=== PATIENT | female | born 1980 | race Caucasian/White ===

== ENCOUNTER 2020-05-10 14:54 | Outpatient (CLI) | payer OTHER, SELFPAY ==
[2020-05-10 15:52] LABS: Basophils Absolute Auto 0.1 K/mm3 (0.0-0.1); Basophils Percent Auto 0.9 % (0.2-1.2); Eosinophils Absolute Auto 0.6 K/mm3 (0-0.3); Hematocrit 40.2 % (37.0-47.0); Hemoglobin 13.1 g/dL (12.0-15.0); Immature Granulocyte Absolute 0.02 K/mm3 (0.00-0.031); Immature Granulocyte Percent A 0.2 % (0-0.5); Lymphocytes Absolute Auto 2.13 K/mm3 (0.9-3.2); Lymphocytes Percent Auto 21.3 % (18.3-44.2); Mean Corpuscular HGB Conc 32.6 g/dl (32-36); Mean Corpuscular Hemoglobin 30.6 pg (26-34); Mean Corpuscular Volume 93.9 fl (80-100); Mean Platelet Volume 11.1 fl (7.4-10.4); Monocytes Absolute Auto 0.4 K/mm3 (0.1-0.6); Neutrophils Absolute Auto 6.8 K/mm3 (1.3-6.7); Neutrophils Percent Auto 67.6 % (45.5-73.1); Platelet Count Result 330 k/mm3 (150-375); Red Blood Count 4.28 M/mm3 (4.2-5.4); Red Cell Distribution Width 11.9 % (11.5-14.5)
[2020-05-10 15:53] LABS: Add Urine Microscopic? NO; Appearance Urine Clear (Clear); Bilirubin Urine Negative (Negative); Blood Urine Negative (Negative); Color Urine Yellow (Yellow); Glucose Urine UA Negative (Negative); Ketones Urine Negative (Negative); Leukocyte Esterase Ur Negative LEU/UL (Negative); Nitrate Urine Negative (Negative); Protein Urine Negative (Negative); Specific Grav Ur 1.024 (1.001-1.035); Urobilinogen Urine Negative mg/dL (<2.0)
[2020-05-10 16:08] LABS: Alanine Aminotransferase 14 U/L (4-35); Albumin Level 4.5 g/dL (3.5-5.1); Alkaline Phosphatase 64 U/L (38-126); Anion Gap 10 mmol/L (8-16); Aspartate Amino Transferase 19 U/L (14-36); Bilirubin,Total 0.2 mg/dL (0.2-1.3); Blood Urea Nitrogen 10 mg/dL (7-17); Calcium 9.5 mg/dL (8.4-10.2); Carbon Dioxide 28 mmol/L (22-30); Chloride 103 mmol/L (98-107); Estimated Glomerular Filt Rate > 60; Glucose 85 mg/dL (65-105); Potassium 3.9 mmol/L (3.4-5.0); Sodium 141 mmol/L (137-145)
[2020-05-10 16:49] LABS: Free T4 Free Thyroxine 1.15 ng/mL (0.78-2.19)
== END 2020-05-10 14:55 | disposition home or self-care (01) ==
PROVIDERS: PCP Family Medicine; Visit Provider Physician Assistant
DX: R35.0 Frequency of micturition (principal); R30.0 Dysuria; E03.9 Hypothyroidism, unspecified; F41.1 Generalized anxiety disorder; R35.8 Other polyuria; R53.83 Other fatigue; Z86.32 Personal history of gestational diabetes
CPT/HCPCS: 36415; 80053; 81003; 83036; 84439; 84443; 85025

== ENCOUNTER 2020-09-30 16:10 | Outpatient (CLI) | payer OTHER, SELFPAY ==
[2020-09-30 17:42] LABS: Free T4 Free Thyroxine 1.46 ng/mL (0.78-2.19)
[2020-09-30 17:49] LABS: Cortisol Random 5.74 ug/dL
[2020-09-30 17:50] LABS: Thyroid Stimulating Hormone 0.133 uIU/mL (0.465-4.680); Total Triiodothyronine (T3) 1.22 NG/ML (0.97-1.69)
[2020-10-03 05:18] LABS: FSH 4.9 mIU/mL (***); LH 3.2 mIU/mL (***)
[2020-10-04 13:45] LABS: Testosterone Free 4.6 pg/mL (0.1-6.4); Testosterone Total 25 ng/dL (2-45)
== END 2020-09-30 16:11 | disposition home or self-care (01) ==
LOC: ANHLAB 16:11
PROVIDERS: PCP Family Medicine; Visit Provider Physician Assistant
DX: E03.9 Hypothyroidism, unspecified (principal); R53.82 Chronic fatigue, unspecified; R10.2 Pelvic and perineal pain
CPT/HCPCS: 36415; 82533; 83001; 83002; 84402; 84403; 84439; 84443; 84480

== ENCOUNTER 2020-12-27 08:50 | Outpatient (CLI) | payer OTHER, SELFPAY ==
[2020-12-27 09:59] LABS: Thyroid Stimulating Hormone 0.678 uIU/mL (0.465-4.680); Total Triiodothyronine (T3) 1.03 NG/ML (0.97-1.69)
[2020-12-27 10:28] LABS: Free T4 Free Thyroxine 1.06 ng/mL (0.78-2.19)
== END 2020-12-27 08:51 | disposition home or self-care (01) ==
PROVIDERS: PCP Family Medicine; Visit Provider Family Medicine
DX: E03.9 Hypothyroidism, unspecified (principal)
CPT/HCPCS: 36415; 84439; 84443; 84480

== ENCOUNTER → 2021-12-16 12:18 | Outpatient (CLI) | payer OTHER, SELFPAY ==
--- NOTE | ~2021-12-16 | XR_ITS ---
EXAMINATION: XR chest 2V 12/16/2021 12:57 INDICATION: Cough PROCEDURE: 2 view chest COMPARISON: No prior studies for comparison. FINDINGS: The lungs are clear. The cardiomediastinal silhouette is within normal limits. There are no pleural effusions. There is no pneumothorax suspected. IMPRESSION: 1: NO ACUTE CARDIOPULMONARY DISEASE. Reviewed, dictated and finalized at location A.
== END ==
PROVIDERS: PCP Family Medicine; Visit Provider Nurse Practitioner Gerontology
DX: R05.9 Cough, unspecified (principal)
CPT/HCPCS: 71046

== ENCOUNTER 2022-02-03 15:04 | Outpatient (CLI) | payer OTHER, SELFPAY ==
[2022-02-03 15:26] LABS: Basophils Absolute Auto 0.1 K/mm3 (0.0-0.1); Eosinophils Absolute Auto 0.3 K/mm3 (0-0.3); Eosinophils Percent Auto 4.3 % (0-4.4); Hematocrit 34.9 % (37.0-47.0); Immature Granulocyte Absolute 0.01 K/mm3 (0.00-0.031); Immature Granulocyte Percent A 0.1 % (0-0.5); Lymphocytes Absolute Auto 2.15 K/mm3 (0.9-3.2); Lymphocytes Percent Auto 29.6 % (18.3-44.2); Mean Corpuscular HGB Conc 31.5 g/dl (32-36); Mean Corpuscular Hemoglobin 26.6 pg (26-34); Mean Corpuscular Volume 84.5 fl (80-100); Mean Platelet Volume 11.1 fl (7.4-10.4); Monocytes Absolute Auto 0.5 K/mm3 (0.1-0.6); Monocytes Percent Auto 6.2 % (2.6-8.5); Neutrophils Absolute Auto 4.3 K/mm3 (1.3-6.7); Neutrophils Percent Auto 58.8 % (45.5-73.1); Platelet Count Result 374 k/mm3 (150-375); Red Blood Count 4.13 M/mm3 (4.2-5.4); Red Cell Distribution Width 15.2 % (11.5-14.5); White Blood Count 7.3 K/mm3 (4.5-10.0)
[2022-02-03 16:10] LABS: Alanine Aminotransferase 14 U/L (6-35); Alkaline Phosphatase 56 U/L (38-126); Anion Gap 7 mmol/L (8-16); Aspartate Amino Transferase 23 U/L (14-36); Bilirubin,Total 0.2 mg/dL (0.2-1.3); Blood Urea Nitrogen 13 mg/dL (7-17); Calcium 8.4 mg/dL (8.4-10.2); Carbon Dioxide 25 mmol/L (22-30); Chloride 104 mmol/L (98-107); Estimated Glomerular Filt Rate > 60; Glucose 88 mg/dL (65-110); Sodium 136 mmol/L (137-145)
[2022-02-03 16:41] LABS: Free T4 Free Thyroxine 1.16 ng/mL (0.78-2.19)
[2022-02-03 16:45] LABS: Total Triiodothyronine (T3) 1.04 NG/ML (0.97-1.69)
[2022-02-03 18:34] LABS: Hemoglobin A1C 5.3 % (<5.7)
[2022-02-08 04:33] LABS: Thyroid Peroxidase Antibodies 301 IU/mL (<9)
== END 2022-02-03 15:05 | disposition home or self-care (01) ==
LOC: ANHLAB 15:05
PROVIDERS: PCP Family Medicine; Visit Provider Nurse Practitioner Gerontology
DX: R53.83 Other fatigue (principal); R00.2 Palpitations
CPT/HCPCS: 36415; 80053; 82607; 83036; 84439; 84443; 84480; 85025; 86376

== ENCOUNTER 2023-03-01 01:11 | Emergency (ER) | payer OTHER, SELFPAY ==
[2023-03-01] VITALS (18 sets, daily range): BP systolic 110–131; BP diastolic 81–83; PULSE 89–109; RESP 14–25; TEMP 36.6; O2SAT 98–100
--- NOTE | ~2023-03-01 | CT_ITS ---
Clinical Indication: Chest pain CT Scan of the Chest with Contrast: Technique: Contiguous sections were acquired throughout the chest after intravenous administration of 100 cc of Omnipaque 350. Dose reduction technique was used on this scan by utilizing automated expos ure control and iterative reconstruction technique. The dose-length product (DLP) was 223.81 mGy-cm. Findings: There is no evidence of any significant mediastinal, hilar or axillary lymphadenopathy. There is no f illing defect in the pulmonary arterial tree to suggest pulmonary embolus. There is no evidence of ao rtic dissection or aneurysm. There is no evidence of pleural or pericardial effusion. 4 mm right middle lobe pulmonary nodule noted. Lungs are otherwise clear. Images through the upper abdomen reveal small hiatal hernia. Impression: No evidence of pulmonary embolus, aortic dissection, or aortic aneurysm. 4 mm right middle lobe pulmonary nodule. According to Fleischner Society criteria, for a low-risk pat ient, no further follow-up required. For a high-risk patient, consider 12 month follow-up CT. Small hiatal hernia. Reviewed, dictated and finalized at [facility]. Impression: No evidence of pulmonary embolus, aortic dissection, or aortic aneurysm. 4 mm right middle lobe pulmonary nodule. According to Fleischner Society criter ia, for a low-risk patient, no further follow-up required. For a high-risk oral ent, consider 12 month follow-up CT. Small hiatal hernia.
--- NOTE | ~2023-03-01 | XR_ITS ---
Clinical Indication: Chest pain PA and lateral views of the chest: Comparison: 12/16/2021 Findings: The lungs are clear, without evidence of focal consolidation or pleural effusion. Cardiome diastinal silhouette is within normal limits. Bones and soft tissues are unremarkable. Impression: Normal chest. Reviewed, dictated and finalized at location . Impression: Normal chest.
--- NOTE | 2023-03-01 01:16 | ECG_ITS ---
Measurements Intervals [place] Rate: 100 P: 20 [place]: 116 QRS: 81 QRSD: 89 T: 25 QT: 341 QTc: 440 Interpretive Statements SINUS TACHYCARDIA WITH SHORT [place] INTERVAL POSSIBLE RIGHT VENTRICULAR CONDUCTION DELAY [RSR (QR) IN V1/V2] BORDERLINE ECG NO PREVIOUS ECG AVAILABLE FOR COMPARISON Electronically Signed On 03-01-2023 14:05:35 CDT by Telly Hernandez M.D.
[2023-03-01 01:42] LABS: Basophils Absolute Auto 0.1 K/mm3 (0.0-0.1); Eosinophils Absolute Auto 0.4 K/mm3 (0-0.3); Eosinophils Percent Auto 4.4 % (0-4.4); Hematocrit 30.4 % (37.0-47.0); Hemoglobin 9.3 g/dL (12.0-15.0); Immature Granulocyte Absolute 0.03 K/mm3 (0.00-0.031); Immature Granulocyte Percent A 0.3 % (0-0.5); Lymphocytes Absolute Auto 2.65 K/mm3 (0.9-3.2); Lymphocytes Percent Auto 28.2 % (18.3-44.2); Mean Corpuscular HGB Conc 30.6 g/dl (32-36); Mean Corpuscular Hemoglobin 24.5 pg (26-34); Mean Platelet Volume 10.6 fl (7.4-10.4); Monocytes Absolute Auto 0.5 K/mm3 (0.1-0.6); Neutrophils Absolute Auto 5.8 K/mm3 (1.3-6.7); Neutrophils Percent Auto 61.1 % (45.5-73.1); Platelet Count Result 510 k/mm3 (150-375); Red Cell Distribution Width 17.2 % (11.5-14.5); White Blood Count 9.4 K/mm3 (4.5-10.0)
--- NOTE | 2023-03-01 01:44 | ED.CHESTPAIN ---
HPI - Chest Pain General Chief Complaint: Chest Pain Stated Complaint: chest pain, jaw pain Time Seen by Provider: 03/01/23 01:21 Source: patient and RN notes reviewed Mode of arrival: ambulatory Limitations: no limitations History of Present Illness HPI narrative: This is a 42 year old female who presents for evaluation of chest pain. Patient states approximately 1 hour ago she was laying in bed when she developed midsternal chest pain. She describes pain as squeezing with associated dizziness, shortness of breath and sweating. This last approximately 1 hour. She took 2 baby aspirin at home. She states her symptoms have completely resolved. She denies having any chest pain recently. She notes that she has been on lasix for leg swelling that has not resolved. She denies heart disease. Related Data Home Medications Medication Instructions Recorded Confirmed loratadine 10 mg tablet (Claritin) 10 mg PO DAILY 06/11/21 02/03/22 dextroamphetamine-amphetamine 10 10 mg PO BID 11/14/21 02/03/22 mg tablet (Adderall) Allergies Allergy/AdvReac Type Severity Reaction Status Date / Time No Known Allergies Allergy Verified 03/01/23 01:12 Review of Systems Review of Systems: All systems reviewed & are unremarkable except as noted in HPI and below Constitutional: Constitutional: Denies weakness Cardiovascular: Cardiovascular: Reports chest pain, Denies syncope, Denies rapid heart rate, Denies irregular heart rhythm, Denies leg edema, Reports radiating jaw, neck or arm pain and Reports dyspnea Respiratory: Respiratory: Denies chest congestion, Denies hemoptysis, Denies excessive phlegm production and Denies dyspnea Gastrointestinal: Gastrointestinal: Denies abdominal pain, Denies hematochezia, Denies diarrhea and Denies vomiting Genitourinary: Genitourinary: Denies hematuria and Denies dysuria Musculoskeletal: Musculoskeletal: Denies joint swelling, Denies loss of height and Denies muscle weakness Neurologic: Denies syncope, Denies focal weakness and Denies weakness PMFSH Past Medical History Medical History Adult hypothyroidism Cough MICKIE (generalized anxiety disorder) Major depressive disorder, recurrent, moderate Seasonal allergies Family History Family History Father Hypertension Mixed hyperlipidemia Myasthenia gravis Glaucoma Mother Hydrocephalus Sibling Asthma Glaucoma Social History Social History Social History: Smoking status: Former smoker Tobacco type: cigarettes Second hand tobacco smoke exposure: No Smoking end date: 07/26/85 Alcohol intake: never Substance use: never Substance use type: does not use Living arrangements: with family Occupation/Education: unemployed Gender identity (if verbalized by the patient): Female Sexual Orientation (if Verbalized by the Patient): Straight or Heterosexual Exam Const: General: no acute distress and alert Nutritional Appearance: well nourished Orientation/consciousness: patient oriented x3 HENMT: Head: normal to inspection Eyes: EOM: EOMs intact bilaterally Chest: Chest palpation & inspection: normal inspection of the chest Resp: Effort & Inspection: normal respiratory effort Auscultation: clear to auscultation bilaterally Cardio: Rate: regular rate Rhythm: regular rhythm Heart sounds: no murmurs GI: GI Palp: Yes Soft to palpation, No Tenderness to palpation present (GI), No Guarding due to palpation present (GI) and No Rigid due to palpation Auscultation: normal bowel sounds Skin: General skin exam: normal color Rashes: no rashes Wounds: no wounds Neuro: General: patient oriented x3, moves all extremities and CN's II-XI intact bilaterally Extrem: General: normal to inspection Psych: Mental Status: mental status grossly normal
[2023-03-01 01:52] LABS: Alanine Aminotransferase 16 U/L (6-35); Albumin Level 4.2 g/dL (3.5-5.1); Alkaline Phosphatase 71 U/L (38-126); Anion Gap 7 mmol/L (8-16); Aspartate Amino Transferase 18 U/L (14-36); Bilirubin,Total < 0.1 mg/dL (0.2-1.3); Blood Urea Nitrogen 10 mg/dL (7-17); Calcium 8.9 mg/dL (8.4-10.2); Carbon Dioxide 26 mmol/L (22-30); Chloride 102 mmol/L (98-107); Estimated CRCL calculation 79 ml/min; Estimated Glomerular Filt Rate > 60; Glucose 123 mg/dL (65-110); Lipase 77 U/L (23-300); Potassium 3.3 mmol/L (3.4-5.0); Sodium 135 mmol/L (137-145)
[2023-03-01] MEDS: ASPIRIN 81 MG CHEWABLE TABLET 324 MG PO (01:56)
[2023-03-01 02:03] LABS: INR 0.9; Prothrombin Time 12.8 Seconds (11.1-14.7); Troponin I < 0.012 ng/mL (0.000-0.034)
[2023-03-01 02:05] LABS: Partial Thromboplastin Time 26.2 SECONDS (22.3-36.8)
[2023-03-01] MEDS: POTASSIUM CHLORIDE 20 MEQ ER TABLET 40 MEQ PO (02:49)
[2023-03-01 03:25] LABS: D Dimer 0.64 ug/mL (<0.48)
[2023-03-01 04:31] LABS: Troponin I < 0.012 ng/mL (0.000-0.034)
== END 2023-03-01 06:11 | disposition home or self-care (01) ==
PROVIDERS: Emergency Provider General Practice; PCP Physician Assistant
DX: K20.90 Esophagitis, unspecified without bleeding (principal); R07.9 Chest pain, unspecified; Z87.891 Personal history of nicotine dependence
CPT/HCPCS: 36415; 71046; 71275; 80053; 83690; 84484; 85025; 85380; 85610; 85730; 93005; 99284; A9270; Q9967

== ENCOUNTER 2024-05-17 22:37 | Emergency (ER) | payer OTHER, SELFPAY ==
--- NOTE | ~2024-05-17 | XR_ITS ---
EXAMINATION: XR chest 1V portable DATE: 05/17/2024 23:07 INDICATION: Shortness of breath TECHNIQUE: frontal view of the chest was obtained. COMPARISON: Chest radiograph and CT dated 03/01/2023 FINDINGS: The lungs remain clear with no focal airspace opacities, pulmonary edema, pleural effusion or pneumot horax. The cardiomediastinal silhouette is normal. Mild thoracic dextrocurvature. IMPRESSION: 1. No acute cardiopulmonary disease. Reviewed, dictated and finalized at location A.
[2024-05-17 22:38] VITALS: BP 123/79; PULSE 95; RESP 19; TEMP 36.9; O2SAT 99
--- NOTE | 2024-05-17 22:45 | ECG_ITS ---
Test Date: 2024-05-17 22:49:37 Measurements Intervals [place] Rate: 97 P: -22 DC: 105 QRS: 76 QRSD: 85 T: 30 QT: 340 QTc: 434 Interpretive Statements SINUS RHYTHM WITH SHORT [place] INTERVAL INCOMPLETE RIGHT BUNDLE BRANCH BLOCK No previous ECG available for comparison Electronically Signed On 05-18-2024 09:42:11 CDT by Sobeida Lees M.D.
--- NOTE | 2024-05-18 00:27 | ED_ITS ---
HPI - General Adult General Chief complaint: Shortness of Breath/Dyspnea Stated complaint: shortness of breath Time Seen by Provider: 05/17/24 22:59 History of Present Illness HPI narrative: Patient is a 43-year-old female who presents to the emergency department this evening complaining of a cough that she has had for the past 8 weeks. Patient had COVID approximately 2 months ago and since then has had this cough that would not go away. Patient also states that she is having intermittent body aches, sore throat and admits that this cough has been keeping her up at night and preventing her from going to sleep. Patient was seen at an urgent care on the 08 of May and was prescribed a Z-Prosper and penicillin for possible pneumonia. Patient states they did not perform a chest x-ray it was a clinical diagnosis. Patient finished the course of antibiotics but states that the cough has still persisted. Patient denies any additional symptoms or concerns at this time. Related Data Home Medications Medication Instructions Recorded Confirmed loratadine 10 mg tablet (Claritin) 10 mg PO DAILY 06/11/21 02/03/22 dextroamphetamine-amphetamine 10 10 mg PO BID 11/14/21 02/03/22 mg tablet (Adderall) Allergies Allergy/AdvReac Type Severity Reaction Status Date / Time No Known Allergies Allergy Verified 05/17/24 22:37 Review of Systems Review of Systems: All systems are reviewed and are negative unless stated otherwise in the HPI. [facility] Past Medical History Medical History Adult hypothyroidism Cough MICKIE (generalized anxiety disorder) Major depressive disorder, recurrent, moderate Seasonal allergies Family History Family History Father Hypertension Mixed hyperlipidemia Myasthenia gravis Glaucoma Mother Hydrocephalus Sibling Asthma Glaucoma Social History Social History Social History: Smoking status: Former smoker Tobacco type: cigarettes Second hand tobacco smoke exposure: No Smoking end date: 07/26/85 Alcohol intake: never Substance use: never Substance use type: does not use Living arrangements: with family Occupation/Education: unemployed Gender identity (if verbalized by the patient): Female Sexual Orientation (if Verbalized by the Patient): Straight or Heterosexual Exam Narrative: General: Alert, awake, afebrile, in no acute distress. HEENT: PERRL, no rhinorrhea, no post nasal drip, oropharynx clear. Cardiovascular: Regular rate and rhythm, no murmurs, rubs or gallops, no peripheral edema. Respiratory: Clear to auscultation bilaterally, no tachypnea, no wheezing, no rhonchi, no rubs, no respiratory distress. Abdomen: Soft, nontender, nondistended, no rebound, no guarding, no peritoneal signs. Musculoskeletal: No joint swelling or deformity, normal muscle tone. Skin: No rashes or petechia, no signs of infection. Neurological: Alert and oriented to person, place, and time. Follows all commands. No focal deficits, speech is clear and fluent. Course Vital Signs Vital signs: Vital Signs Temperature 98.5 F 05/17/24 22:38 Pulse Rate 95 05/17/24 22:38 Respiratory Rate 19 05/17/24 22:38 Blood Pressure 123/79 05/17/24 22:38 Pulse Oximetry 99 05/17/24 22:38 Oxygen Delivery Room Air 05/17/24 22:38 Temperature 98.5 F 05/17/24 22:38 Pulse Rate 95 05/17/24 22:38 Respiratory Rate 19 05/17/24 22:38 Blood Pressure 123/79 05/17/24 22:38 Pulse Oximetry 99 05/17/24 22:38 Oxygen Delivery Room Air 05/17/24 22:38 Medical Decision Making MDM Narrative Medical decision making narrative: The patient was evaluated by myself in the emergency department. History is obtained from patient who is an independent historian and physical exam was performed. External medical records were reviewed at this time. Viral swabs obtained were negative. Imaging studies obtained included CXR which was independently interpreted by me revealing no acute cardiopulmonary process, which is pending final radiology interpretation. Differential diagnosis considerations include acute viral syndrome, infectious process such as pneumonia. Comorbidities impacting this visit include none. I have evaluated and discussed social determinants of health with the patient that could potentially impact subsequent diagnosis and treatment plans. On repeat assessment of the patient, reevaluation revealed that the patient is doing well and is in no acute distress. Patient symptoms have remained stable since she arrived to our emergency department. Repeat vital signs were all reviewed and noted to be stable. Differential diagnosis and treatment plan were discussed with the patient at bedside. Patient agrees with discussion and after shared medical decision making agrees with discharge. All questions were answered to the patient's satisfaction. Patient will follow up with her PCP in 3-5 days. Scripts for prescription strength cough syrup with codeine and Tessalon Perles were sent to patient's pharmacy to use as needed for cough. Patient was provided with strict return precautions and instructed to return to the emergency department if any new or worsening symptoms develop. The patient was discharged in stable condition. Vital Signs Vital Signs: Vital Signs Temperature 98.5 F 05/17/24 22:38 Pulse Rate 95 05/17/24 22:38 Respiratory Rate 19 05/17/24 22:38 Blood Pressure 123/79 05/17/24 22:38 Pulse Oximetry 99 05/17/24 22:38 Oxygen Delivery Room Air 05/17/24 22:38 Temperature 98.5 F 05/17/24 22:38 Pulse Rate 95 05/17/24 22:38 Respiratory Rate 19 05/17/24 22:38 Blood Pressure 123/79 05/17/24 22:38 Pulse Oximetry 99 05/17/24 22:38 Oxygen Delivery Room Air 05/17/24 22:38 Lab Data Labs: Lab Results 05/17/24 Range/Units 23:46 Influenza A (RT-PCR) Pending Influenza B (RT-PCR) Pending SARS-CoV-2 RNA (RT-PCR) Pending Discharge Plan Discharge Clinical Impression: Subacute cough Patient Disposition: Home, Self-Care Condition: Stable Instructions: Antibiotic Form, Acute Cough (ED) Additional Instructions: Please take the prescribed cough medications as needed for cough. Follow-up with your family doctor within the next 3-5 days and return to the ED if any new or worsening symptoms develop. Prescriptions: New benzonatate 200 mg capsule 200 mg PO TID PRN (Reason: cough) Qty: 30 0RF promethazine-codeine 6.25-10 mg/5 mL syrup 5 ml PO Q6H PRN (Reason: cough) Qty: 118 0RF No Action clindamycin phosphate 1 % solution 1 applic topical BID Qty: 60 1RF loratadine [Claritin] 10 mg tablet 10 mg PO DAILY dextroamphetamine-amphetamine [Adderall] 10 mg tablet 10 mg PO BID Rx Instructions: administer doses at least 4-6 hours apart pantoprazole [Protonix] 40 mg tablet,delayed release (DR/EC) 40 mg PO HS 28 Days Qty: 28 0RF tretinoin 0.1 % cream 1 applic topical QHS Qty: 45 2RF pantoprazole 40 mg tablet,delayed release (DR/EC) See Rx Instructions .ROUTE .COMPLEX Qty: 30 0RF Dose Instruction: TAKE 1 TABLET BY MOUTH EVERY MORNING Rx Instructions: TAKE 1 TABLET BY MOUTH EVERY MORNING polysaccharide iron complex 150 mg iron capsule See Rx Instructions .ROUTE .COMPLEX Qty: 30 0RF Dose Instruction: TAKE 1 CAPSULE BY MOUTH EVERY DAY Rx Instructions: TAKE 1 CAPSULE BY MOUTH EVERY DAY levothyroxine 50 mcg tablet See Rx Instructions .ROUTE .COMPLEX Qty: 64 1RF Dose Instruction: TAKE 1 TABLET BY MOUTH WEDNESDAY THROUGH WEDNESDAY. Rx Instructions: TAKE 1 TABLET BY MOUTH WEDNESDAY THROUGH WEDNESDAY. Follow-up/Referrals: Tiago,RAYMOND Wilson [Primary Care Provider] - 3 Days Stand Alone Forms: Work/School Release IP Time of Disposition: 00:29
[2024-05-18 00:33] LABS: Influenza A QL RT-PCR Negative (Negative); Influenza B QL RT-PCR Negative (Negative); SARS-CoV-2 RNA PCR Negative (Negative)
[2024-05-18 00:36] VITALS: BP 98/62; PULSE 75; RESP 16; O2SAT 100; O2SAT 99
[2024-05-18 00:39] VITALS: BP 104/62; PULSE 86; RESP 15; O2SAT 100
== END 2024-05-18 00:40 | disposition home or self-care (01) ==
PROVIDERS: Emergency Provider Emergency Medicine; PCP Physician Assistant
DX: R05.2 Subacute cough (principal); Z87.891 Personal history of nicotine dependence; Z20.822 Contact with and (suspected) exposure to COVID-19
CPT/HCPCS: 71045; 87636; 93005; 99283

== ENCOUNTER 2025-02-01 23:38 | Emergency (ER) | payer OTHER, SELFPAY ==
--- OUTSIDE RECORDS SUMMARY | 2025-02-01 23:41 | XMS_ITS | Clinical Summary ---
Author Organization [facility] Address [address] [address] Phone Care Team Providers Care Admitting Office Escort Name Role Phone Kamilah Trivedi MD Primary Care Provider Allergies No known active allergies Medications azelastine (ASTELIN) 137 mcg (0.1 %) nasal spray 0 Active dextroamphetamine -amphetamine (ADDERALL) 10 mg tabletIndications :Mood disorder,Attentio n deficit hyperactivity disorder (ADHD), unspecified ADHD type Take 10 mg by mouth 2 (two) times a day 2 Active polysaccharide iron complex (NU-IRON) 150 mg iron capsule Take by mouth daily 2 Active levothyroxine (SYNTHROID) 50 mcg tabletIndications :Hypothyroidism (acquired) TAKE 1 TABLET BY MOUTH WEDNESDAY THROUGH Wednesday [address] (PROTONIX) 40 mg EC tabletIndications :Gastroesophageal reflux disease without esophagitis Take 40 mg by mouth every morning 2 Active tretinoin (RETIN-A) 0.1 % creamIndications: Acne rosacea APPLY TOPICALLY TO THE AFFECTED AREA EVERY DAY AT BEDTIME 2 Active triamcinolone (KENALOG) 0.1 % cream APPLY 1 APPLICATION TOPICALLY TO BACK OF HANDS TWICE DAILY FOR UP TO 2 WEEKS. 2 Active clindamycin (CLEOCIN T) 1 % lotionIndications :Acne rosacea Apply topically daily Active Active Problems No known active problems Immunizations Immunization Administration Dates Next Due Influenza, Quadrivalent, Marcia l Culture-based MDCK, Preservative Free, Antibiotic Free, Intramuscular 05/09/2020,05/04/2019 Surgical History Surgery Date Site/Laterality Comments WISDOM TOOTH EXTRACTION Medical History Medical History Date Comments Hypothyroidism Adhd Anxiety and depression Gestational diabetes Family History Medical History Relation Name Comments Epilepsy Brother 1 Glaucoma Brother 2 Glaucoma Father Hypertension Father Myasthenia gravis Father Glaucoma Mother Hydrocephalus Mother Hypertension Mother Colon polyps Other on maternal lesli e Breast cancer Neg Hx Colon cancer Neg Hx Uterine cancer Neg Hx Relation Name Status Comments Brother 1 Brother 2 Alive Father Mother Other Social History Tobacco Use Types Packs/Day Years Used Date Smoking Tobacco: Former Cigarettes Smokeless Tobacco: Never Tobacco Cessation:Counseling Given: Not Answered PHQ-2 Answer Date Recorded PHQ-2 Total Score (If total score is 3 or more points, staff should administer the PHQ-9) 4 04/06/2022 Personal Safety Answer Date Recorded Getting School Help Needed Not on file 09/25 Comments No Sex and Gender Information Value Date Recorded Sex Assigned at Not on file Legal Sex Female 4:44 PM CDT Gender Identity Not on file Sexual Orientation Not on file Obstetrics History Last Filed Vital Signs Vital Sign Reading Time Taken Comments Blood Pressure 110/70 04/06/2022 10:18 AM CDT Pulse 80 04/06/2022 10:18 AM CDT Temperature - - Respiratory Rate - - Oxygen Saturation - - Inhaled Oxygen Concentration - - Weight 63 kg (139 lb) 04/06/2022 10:18 AM CDT Height 157.5 cm (5' 2) 04/06/2022 10:18 AM CDT Body Mass Index 25.42 04/06/2022 10:18 AM CDT Plan of Treatment Health Maintenance Due Date Last Done Comments Breast Cancer Screening-Mammogram 1982 Cervical Cancer Screening 1982 Hepatitis C Screening 1982 DTaP/Tdap/Td Vaccine (1 - Tdap) 1993 Varicella Vaccines (1 of 2 - 13+ 2-dose series) 1995 Hepatitis B Screening 2000 Regular Well Visit/Exam 18-64 2000 Depression Screening 04/06/2023 04/06/2022 Covid-19 Vaccine (3 - 2023-2 5 season) 2024 04/03/2021, 03/12/2021 Influenza Vaccine (Season Ended) 2025 05/09/2020, 05/04/2019 HPV Vaccines Aged Out No longer eligi ble based on patient's age to complete this topic Pneumococcal vaccine <65 Aged Out No longer eligible based on patient's age to complete this topic Insurance CLAIMS Care Teams Admitting Office Escort Relationship Specialty Start Date End Date Kamilah Trivedi MD PCP - General Family Practice 03/31/22
--- OUTSIDE RECORDS SUMMARY | 2025-02-01 23:41 | XMS_ITS | Continuity of Care Document ---
Author Organization [facility] Address [address] [place] [address] [address] [place] [address] Phone Care Team Providers Care Investigator Operator Name Role Phone Honey Valentin Unavailable Unavailable Advance Directives Directive Yes / No Effective Date File Name No Information Encounters Encounter Description Practice Location Reason(s) For Visit Diagnoses Date Provider Providers Copied on Encounter [facility], [id number] [place] [address] [address], [place], [place], [id number], [place] tel:[phone] [address] [facility] No Information [phone]. [address] [facility] , [address], [place], [address], [place]. tel:[phone] Family History Family Member Type Diagnosis Age At Onset No Information Payers Payer name Insurance type Covered democrat ID Authoriza mann(s) [facility] CI [id number] Social History Type Description Quantity Date Captured Comments Sex Female Smoking Status No Information Chief Complaint And Reason For Visit No Information Reason For Referral Reason For Referral No Information History Of Present Illness Encounter Date Complaint History Of Prese nt Illness No Information Functional Status Date Functional Assessmen t No Information Instructions Date Instruction Additional Infor mation No Information Assessments Type Assessment Date No Information Patient Care Teams Name Effective Dates (start - stop) Status Members No Information
--- OUTSIDE RECORDS SUMMARY | 2025-02-01 23:41 | XMS_ITS | Clinical Summary ---
Author Organization [facility] Address [address] [place] [address] Care Team Providers Care Bus Transportation Manager Name Role Phone Kenia Doe MD Primary Care Provider + Source Comments [facility],non-owned Affiliates and Associated Physician Practices is amultiple site organization consisting of ambulatory clinics and hospital sitesin [place], [place], [place] and [place]. This disclosure is being madepursuant to the Care Everywhere program and may not contain all information available regarding this patient. Last updated 18.[facility] Allergies No known active allergies Medications * Be aware that medications may not be up to date on this document. Alwaysverify current medications with the patient. levothyroxine (SYNTHROID) 50 MCG tablet 10/14/2020 Active buPROPion SR 12hr (WELLBUTRIN-SR) 100 MG tablet 10/19/2020 Activ e busPIRone (BUSPAR) 5 MG tablet 11/07/2020 Active azelastine (ASTELIN) 0.1 % nasal spray 05/31/2020 Active Social History Tobacco Use Types Packs/Day Years Used Date Smoking Tobacco: Former Smokeless Tobacco: Never Alcohol Use Standard Drinks/Week Comments Never 0 (1 standard drink = 0.6 oz pur e alcohol) Comments Unknown Sex and Gender Information Value Date Recorded Sex Assigned at Not on file Legal Sex Female 3:44 PM CDT Gender Identity Not on file Sexual Orientation Not on file Last Filed Vital Signs Vital Sign Reading Time Taken Comments Blood Pressure 118/70 01/06/2021 2:37 PM CDT Pulse 106 01/06/2021 2:37 PM CDT Temperature - - Respiratory Rate - - Oxygen Saturation 97% 01/06/2021 2:37 PM CDT Inhaled Oxygen Concentration - - Weight 60.6 kg (133 lb 8 oz) 01/06/2021 2:37 PM CDT Height - - Body Mass Index - - Plan of Treatment Health Maintenance Due Date Last Done Comments LIPID TESTING 1982 MAMMOGRAM 1982 HIV SCREENING 1997 HEPATITIS C SCREENING 09/10/2000 DTAP/TDAP/TD VACCINES (1 - Tdap) 2001 HEPATITIS B VACCINE (1 of 3 - 19+ 3-dose series) 2001 COVID-19 VACCINE ( - 2023-2 5 season) 2024 DEPRESSION SCREENING 07/26/2024 INFLUENZA VACCINE (#1) 2025 07/03/2013 ZOSTER VACCINE (1 of 2) 2032 HIB VACCINE Aged Out No longer eligi ble based on patient's age to complete this topic HPV VACCINE Aged Out No longer eligi ble based on patient's age to complete this topic MENINGOCOCCAL (Group B) VACC INE SHARED DECISION-MAKING Aged Out No longer eligibl e based on patient's age to complete this topic MENINGOCOCCAL GROUPS A/C/Y/W VACCINE Aged Out No longer eligible b ased on patient's age to complete this topic PNEUMOCOCCAL VACCINE Aged Out No long er eligible based on patient's age to complete this topic Insurance * Guarantor: HONG GONSAL[employer] Account Type Relation to Patient Date of Phone Billing Address Personal/Family 1980 [place] [address] Emergency Department/[facility] Address: [facility] CLAIMS [address] [place] [address] Care Teams Bus Transportation Manager Relationship Specialty Start Date End Date Kenia Doe MD [address] [place], [place] [id number] PCP - General Family Medicine 12/30/20
--- OUTSIDE RECORDS SUMMARY | 2025-02-01 23:41 | XMS_ITS | Referral Summary ---
Author Organization [facility] Address [address] [address] Phone Care Team Providers Care Retail Loss Prevention Specialist Name Role Phone Kamilah Trivedi MD Primary [...] MDCK, Preservative Free, Antibiotic Free, Intramuscular 05/09/2020,05/04/2019 Social History Tobacco Use Types Packs/Day Years [...] 04/06/2022 10:18 AM CDT Plan of Treatment Not on file Insurance Care Teams Retail Loss Prevention Specialist Relationship Specialty Start Date End Date Kamilah Trivedi MD PCP - General Family Practice 03/31/22
--- OUTSIDE RECORDS SUMMARY | 2025-02-01 23:41 | XMS_ITS | Data Portability ---
Author Organization [facility], Main Office Address [address] [place] [address] Assessment No assessment recorded. Plan of Treatment Reminders Order Date Submit Date Provider Last Modified By Organization Details Last Modified Time Details Appointments None recorded. Lab CBC w/ auto diff 2024 025 [facility] (Lab), [address] [place], [address], 23:53:50 CMP, serum or plasma 2024 025 [facility] (Lab), [address] [place], [address], 23:53:51 lipid panel, serum 2024 025 [facility] (Lab), [address] [place], [address], 23:53:51 glycohemog lobin, total, blood [address] (Lab), [address] [place], [address], 16:10:58 estrogen, total, serum [address] (Lab), [address] [place], [address], 16:06:59 progestero ne, serum [address] (Lab), [address] [place], [address], 5 16:07:15 prolactin, serum [address] (Lab), [address] [place], [address], 5 16:08:01 lh (luteinizi ng hormone), serum [address] (Lab), [address] [place], [address], 5 16:08:21 FSH (follicle- stimulatin g hormone), serum [address] (Lab), [address] [place], [address], 5 16:08:40 cortisol, serum or plasma [address] [place] [address] (Lab), [address] [place], [address], 5 16:08:58 HLA typing for celiac disease panel, blood [address] [place] [address] (Lab), [address] [place], [address], 5 16:11:39 hepatitis C virus Ab, serum [address] [place] [address] (Lab), [address] [place], [address], 5 16:11:17 TSH, serum or plasma [address] [place] [address] (Lab), [address] [place], [address], 5 16:09:19 TSH, serum or plasma 2023 024 [facility] (Lab), [address] [place], [address], 4 22:18:19 Referral gastroente rologist referral - Please call patient to schedule an appointmen t. Thank you. 2024 025 [email or web address] Amelia Palomino MD, [address] [facility], [facility] [address], [place], [address], 5 17:32:14 gastroente rologist referral - 'Please call patient to schedule an appointmen t. Thank you. I'm unable to request an insurance referral from [facility] until patient contact [facility] to update pcm. Pt is aware. 2023 024 [email or web address] Amelia Palomino MD, [address] [facility], [facility] [address], [place], [address], 4 08:48:38 Procedures None recorded. Surgeries None recorded. Imaging MAMMO, screening, digital, bilateral - Please call patient to schedule. 2024 025 [facility]), [address] [place], [address], 16:25:26 Medication Orders None recorded. Patient TargetsNo targets recorded. Patient InstructionsNo instructions recorded. Reason for Referral Metal Filer Referral for Nausea and vomiting nausea/vomiting, GERD 'Please call patient to schedule an appointment. Thank you. I'm unable to request an insurance referral from [facility] until patient contact [facility] to update pcm. Pt is aware. Referring Physician: Mannie Srivastava, Family Medicine, Encounter Date: 03/31/2024 Metal Filer Referral for Nausea and vomiting Please call patient to schedule an appointment. Thank you. Referring Physician: Zuleyka Gloria Family [facility], Encounter Date: 01/29/2025 Results Created Date Observation Date Name Description Value Unit Range Abnormal Flag Note LastModifiedBy Organization Detail LastModifiedTime 03/01/20 23 03/01/2023 CT, angio gram, chest , w/ contr ast No observ ation record ed. [facility] [address], [place], [address], 03/03/2023 08:20:18 Result Notes None recorded. Problems Name Problem SNOMED Code Status Onset Date Resolution Date Notes Provider Name and Address Organization Details Recorded Time Acute situational disturbance 490096155 Active 2022 Laurie Clark MD [address], [address], [place], [address], [facility] 3 16:41:31 Hypothyroid ism 16281064 Active 2023 Fabián Lees MD [address], [address], [place], [address], [facility] 4 11:41:09 Nausea and vomiting 86424933 Active 2023 YAIR Maldonado [address], [address], [place], [address], [facility] 5 15:18:[address] [facility] 2612659108224 04 Active 2024 YAIR Maldonado [address], [address], [place], [address], [facility] 5 15:11:34 Menopausal symptom 08612223 Active 2024 YAIR Maldonado [address], [address], [place], [address], [facility] 5 15:11:51 Menopausal flushing 101749012 Active 2024 YAIR Maldonado [address], [address], [place], [address], [facility] 5 15:12:08 Abdominal bloating 574221933 Active 2024 YAIR Maldonado [address], [address], [place], [address], [employer] [facility] [employer] 5 15:26:16 Iron deficiency anemia 28247855 Active 2024 YAIR Maldonado [address], [place], [address], [employer] [facility] [employer] 5 14:21:03 Hypertrigly ceridemia 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 Medical Equipment None Reported. Allergies No known drug allergies Medications Name Sig Start Date Stop Date Status Note LastModified by Organization Details LastModified Time tretinoin 0.1 % topical cream APPLY TOPICALLY TO THE AFFECTED AREA EVERY DAY AT BEDTIME 03/31 completed Not Available Not Available Not Available prednisone 10 mg tablet 05/05 completed Not Available Not Available Not Available atorvastati n 20 mg tablet Take 1 tablet every day by oral route at bedtime. 2024 active Not Available Not Available Not Avai lable azithromyci n 250 mg tablet 01/29 completed Not Available Not Available Not Available benzonatate 200 mg capsule TAKE 1 CAPSULE BY MOUTH THREE TIMES DAILY NEEDED FOR COUGH 01/29 completed Not Available Not Available Not Available polysacchar yariel iron complex 150 mg iron capsule TAKE 1 CAPSULE BY MOUTH EVERY DAY 03/31 completed Not Available Not Available Not Available prednisone 20 mg tablet TAKE 2 TABLETS BY MOUTH DAILY WITH FOOD FOR 5 DAYS. DO NOT TAKE WITH ASPIRIN OR NSAIDS SUCH ALEVE OR IBUPROFEN ETC 01/29 completed Not Available Not Available Not Available dextroamphe tamine-amph etamine 10 mg tablet TAKE 1 TABLET BY MOUTH TWICE DAILY 03/31 completed Not Available Not Available Not Available phentermine 37.5 mg tablet TAKE 1 TABLET BY MOUTH EVERY DAY 03/31 completed Not Available Not Available Not Available triamcinolo ne acetonide 0.1 % topical cream APPLY 1 APPLICATI ON TOPICALLY TO BACK OF HANDS TWICE DAILY FOR UP TO 2 WEEKS. 05/05 completed Not Available Not Available Not Available citalopram 20 mg tablet TAKE 1 TABLET BY MOUTH EVERY DAY 01/29 completed Not Available Not Available Not Available benzonatate 100 mg capsule TAKE 1 CAPSULE BY MOUTH EVERY 8 HOURS NEEDED 01/29 completed Not Available Not Available Not Available levothyroxi ne 50 mcg tablet TAKE ONE TABLET BY MOUTH EVERY MORNING 2024 active Not Available Not Available Not Avai lable pantoprazol e 40 mg tablet,james yed release TAKE 1 TABLET BY MOUTH EVERY MORNING 03/31 completed Not Available Not Available Not Available oseltamivir 75 mg capsule TAKE 1 CAPSULE BY MOUTH EVERY 12 HOURS FOR 5 DAYS 01/29 completed Not Available Not Available Not Available ferrous sulfate 325 mg (65 mg iron) tablet Take 1 tablet every day by oral route. 2024 active Not Available Not Available Not Avai lable dextroamphe tamine-amph etamine 15 mg tablet TAKE 1 TABLET BY MOUTH TWICE DAILY 03/31 completed Not Available Not Available Not Available fluoxetine 10 mg capsule TAKE 1 CAPSULE BY MOUTH DAILY 05/05 completed Not Available Not Available Not Available codeine 10 mg-guaifene sin 100 mg/5 mL oral liquid TAKE 10 ML BY MOUTH EVERY 6 HOURS NEEDED FOR COUGH 05/05 completed Not Available Not Available Not Available amoxicillin 875 mg-potassiu m clavulanate 125 mg tablet TAKE 1 TABLET BY MOUTH EVERY 12 HOURS FOR 10 DAYS 01/29 completed Not Available Not Available Not Available clindamycin phosphate 1 % topical solution APPLY TOPICALLY TO THE AFFECTED AREA TWICE DAILY 03/31 completed Not Available Not Available Not Available atomoxetine 40 mg capsule TAKE 1 CAPSULE BY MOUTH TWICE DAILY 05/05 completed Not Available Not Available Not Available atomoxetine 60 mg capsule TAKE 1 CAPSULE BY MOUTH EVERY MORNING 05/05 completed Not Available Not Available Not Available dexmethylph enidate ER 5 mg capsule,ext ended release cdmhwdyj81- 50 TAKE 2 CAPSULES BY MOUTH EVERY DAY 03/31 completed Not Available Not Available Not Available dexmethylph enidate ER 20 mg capsule,ext ended release vryuclzn34- 50 active Not Available Not Available Not Available dexmethylph enidate ER 15 mg capsule,ext ended release judobdus26- 50 TAKE 1 CAPSULE BY MOUTH EVERY MORNING 03/31 completed Not Available Not Available Not Available Vitals Date Recorded Body mass index (BMI) Body height Oxygen saturation Oxygen saturation in Arterial blood by Pulse oximetry Heart rate Body temperature Body weight Systolic And Diastolic Provider Name and Address Organization Details Last Updated DateTime 3 25.9 kg/m2 154.94 cm 98 % 98 % 114 /min 98.5 [degF] 69517.1 5 g 100/68 mm[Hg] Not Available [facility] 3 01:23:56 Date Recorded Body height Body mass index (BMI) Body weight Body temperature Heart rate Oxygen saturation Oxygen saturation in Arterial blood by Pulse oximetry Systolic And Diastolic Provider Name and Address Organization Details Last Updated DateTime 5 154.94 cm 25.5 kg/m2 26523.9 7 g 100.9 [degF] 91 /min 99 % 99 % 120/78 mm[Hg] MATHEW Bailey [facility] [employer] [facility] 5 14:41:11 Date Recorded Body weight Body mass index (BMI) Body height Body temperature Heart rate Oxygen saturation Oxygen saturation in Arterial blood by Pulse oximetry Systolic And Diastolic Provider Name and Address Organization Details Last Updated DateTime 4 70122.8 6 g 28.3 kg/m2 154.94 cm 97.5 [degF] 107 /min 100 % 100 % 128/86 mm[Hg] Amanda Torres RN [facility] [employer] [facility] 4 09:58:51 Date Recorded Oxygen saturation Oxygen saturation in Arterial blood by Pulse oximetry Heart rate Body temperature Body weight Systolic And Diastolic Provider Name and Address Organization Details Last Updated DateTime 2 98 % 98 % 70 /min 98.3 [degF] 35123.1 2 g 118/70 mm[Hg] Not Available [facility] 3 01:23:56 Social History Question Answer Notes LastModified by Organizat ion Details LastModified Time Tobacco Smoking Status Never Smoker Not Available [facility] 09/24/2022 01:22:59 What Is Your Level Of Caffeine Consumption? Occasional [id number] Information not available 09/24/2022 In The 14 Days Before Symptom Onset, Have You Had Close Contact With A Laboratory-confir med COVID-19 While That Case Was Ill? No [id number] Information not available 09/24/2022 In The 14 Days Before Symptom Onset, Have You Had Close Contact With A Person Who Is Under Investigation For COVID-19 While That Person Was Ill? No [id number].[id number] Information not available 09/24/2022 What Type Of Diet Are You Following? REGULAR [id number].[id number] Information not available 09/24/2022 Do You Use Insect Repellent Routinely? No Information not available 01/29/2025 Where Do You Live? [facility] Information not available 01/29/2025 What Was The Date Of Your Most Recent Tobacco Screening? 01/29/2025 Information not available 01/29/2025 How Many Children Do You Have? 2 Information not available 01/29/2025 Do You Have Any Pets? Yes Information not available 01/29/2025 What Is Your Relationship Status? Information not available 01/29/2025 Do You Use Your Seat Belt Or Car Seat Routinely? Yes Information not available 01/29/2025 Do You Have Smoke And Carbon Monoxide Detectors In Your Home? Yes Information not available 01/29/2025 Are There Any Smokers In Your House? No Information not available 01/29/2025 Do You Participate In Social Media? No Information not available 01/29/2025 Do You Use Sunscreen Routinely? Yes Information not available 01/29/2025 Has Tobacco Cessation Counseling Been Provided? No [id number] Information not available 09/24/2022 Have You Recently Traveled Abroad? No Information not available 01/29/2025 Are You Currently In School? Yes Information not available 01/29/2025 Do You Have Any Dietary Restrictions? No MIGRATION.[id number] Information not available 09/24/2022 Sex: Unknown Functional Status Question Answer Note LastModified by Organizat ion Details LastModified Time Do you use any illicit or recreational drugs? No [id number] Information not available 09/24/2022 Do you or have you ever used any other forms of tobacco or nicotine? No [id number].[id number] 026 Information not available 09/24/2022 What is your level of alcohol consumption? None MIGRATION.[id number] 026 Information not available 09/24/2022 Are you currently employed? Yes Information not available 01/29/2025 What is your exercise level? Occasional [id number].[id number] 026 Information not available 09/24/2022 Mental Status Question Answer Note LastModified by Organization D etails LastModified Time Do you feel stressed (tense, restless, nervous, or anxious, or unable to sleep at night)? [id number] Information not available 01/29/2025 Family History Nothing Reported. Medical History No medical history recorded. Gynecological History Statement/Question Response Date of LMP 01/08/2025 Sexually Active? Y Menses Monthly Y STIs/STDs N Current Control Method None Breast Problems no Discharge no Obstetrics History GPAL:G 2 P 2 0 0 2 Type Value Full Term 2 Living 2 Total 2 Immunizations Vaccine Type Date Status Note Provider Nam e and Address Organization Details Recorded Time Tdap 01/29/2025 completed Narayan Shell, RMA null, [place] - [employer] [facility] [employer] 01/29/2025 16:07:18 Hep B, adult 01/29/2025 completed Narayan Shell RMA null, [email or web address] [facility] [employer] 01/29/2025 16:08:27 Past Encounters Encounter ID Performer Location Encounter Start Date Encounter Closed Date Diagnosis/Indication Diagnosis SNOMED-CT Code Diagnosis ICD10 Code Diagnosis Note [id number] RAYMOND Antunez [facility] Primary Care [facility] [address] [employer] [facility] [address] [place] [address] 05/05/2022 00:00:00 05/05/2022 20:14:47 [id number] RAYMOND Antunez [facility] [address] [employer] [facility] [address] [facility] [place] [address] 08/05/2022 00:00:00 08/05/2022 14:48:14 [id number] YAIR Davis [facility] Primary [place] [address] [employer] [facility] [address] [facility] [place] [address] 03/31/2024 09:49:26 03/31/2024 10:20:28 Nausea and vomiting 77175460 R11.2 vomiting once every couple weeks in the morningfee lings like she is fatiguedga stro Hypothyroidism 64624329 E03.9 [id number] YAIR Maldonado [facility] Primary Care Jun [place] [address] [facility] [address] [place] [address] 01/29/2025 14:15:52 01/29/2025 16:15:16 General examination of patient [id number] Z00.00 Z13.6 Z13.1 Discussed medication compliance and routine follow up.Discuss ed healthy diet and routine exercise.Sander stephensiewed vaccine records and made recommenda tions as needed.Enc ouraged annual eye and dental exams, as well as twice yearly dental cleanings. Will check screening labs as listed below. Menopausal flushing 1984 47767 N95.1 Will check labs as listed below. Hypothyroidism 20478947 E03.9 Will check labs as listed below. Screening mammography 24 562351 Z12.31 Nausea and vomiting 1693 2000 R11.2 Requires a tetanus booster 586287418 Z23 Viral scre ening status 427766108 Z11.59 Abdominal bloating 05829 9008 R14.0 Active immunization 3387 9002 Z23 Health Concerns Section Related Observation LastModified by Organization Detai ls LastModified Time None Recorded Concern Status LastModified by Organization Details LastModified Time None Recorded Advance Directives Directive None Recorded Payers Insurance Date Sequence Insurance Name Policy Number Policy Mancia Covered Member ID Mancia Member ID Guarantor Name 01/29/2025 1 EAST - HUMANA - PRIME () Anthony Gonsales [id number] Regla Gonsales 01/29/2025 1 WEST - TRIWEST () Anthony Gonsales [id number] Regla Gonsales Notes Date Note Type Note Provider Name and Address Organization Details Recorded Time 03/31/2024 text/html pt is here for check up YAIR Davis [address] [facility], [facility] [address], [place], [address], [facility] [employer] [facility] 03/31/2024 10:14:56 01/29/2025 text/html Patient is a 44 year old female that presents to the office for annual wellness. labs- orderedWWE- UTD 03/2024Mammogra m-orderedColono scopy-orderedFl u- UTDCovid- UTDTdap- ordered LUKAS Maldonado-C [address] [facility], [facility] [address], [place], [address], [place] [facility] [facility] 01/30/2025 13:56:33 OBGyn Episode No OBEpisode recorded.
--- OUTSIDE RECORDS SUMMARY | 2025-02-01 23:41 | XMS_ITS | Continuity of Care Document ---
Author Name [facility] Organization [facility] Care Team Providers Care Bottom Precipitator Operator Name Role Phone [facility] Unavailable Unavailable Social History Combined list of available smoking, tobacco, and other social history from Department of Defense and Veterans Affairs facilities. Social History Type Response Date Comment Sourc e This section is an empty social history section. DoD
--- OUTSIDE RECORDS SUMMARY | 2025-02-01 23:41 | XMS_ITS | Continuity of Care Document ---
Author Organization [facility]. If a dditional information is needed, contact Health Information Management at [phone] Address [address] [place] [address] Phone Care Team Providers Care See Supervisor Name Role Phone Unavailable Unavailable Unavailable Unavailable Unavailable Unavailable Problems Nodule of lung Onset:08-Jan-2022 Dyspnea Onset:08-Jan-2022 Scottie Saenz MD Cough Onset:08-Jan-2022 Scottie Saenz MD Allergies and Adverse Reactions No Known Allergies(Allergy) Onset: 07-Jan-2022 Medications sodium chloride 9 MG/ML Injectable Solution;100 MILLILITERS INTRAVENOUS PROCEDURE Quantity:1 Scottie Saenz MD Start:07-Jan-2022 Status:Discontinued Comments:[id number] Administration Instructions:CT EXAMPREFILL INJECTOR WITH 100 ML NORMAL SALINE. STOP INJECTIONONCE APPROPRIATE CONTRAST BOLUS TIMING HAS BEEN ACCOMPLISHED 10 ML sodium chloride 9 MG/ML Prefilled Syringe;10 MILLILITERS INTRAVENOUS PROCEDURE Quantity:1 Scottie Saenz MD Start:07-Jan-2022 Status:Discontinued Comments:[id number] Administration Instructions:CT EXAM Social History Smoking Status Ex-smoker Recorded: 07-Jan-2022
[2025-02-01 23:48] VITALS: BP 138/96; PULSE 100; RESP 18; TEMP 36.6; O2SAT 100
[2025-02-02 01:30] VITALS: BP 114/84; PULSE 91; RESP 15; TEMP 36.9; O2SAT 98
[2025-02-02 01:33] VITALS: BP 114/84; PULSE 95; RESP 18; O2SAT 99
[2025-02-02 02:06] VITALS: BP 103/78; PULSE 85; RESP 23
--- OUTSIDE RECORDS SUMMARY | 2025-02-02 02:08 | XMS_ITS | Referral Summary ---
Author Organization [facility] Address [address] [address] Phone Care Team Providers Care Doctor Of Chiropractic Name Role Phone Kamilah Trivedi MD Primary [...] Treatment Not on file Insurance Care Teams Doctor Of Chiropractic Relationship Specialty Start Date End Date Kamilah Trivedi MD PCP - General Family Practice 03/31/22
--- OUTSIDE RECORDS SUMMARY | 2025-02-02 02:08 | XMS_ITS | Clinical Summary ---
Author Organization [facility] Address [address] [address] Phone Care Team Providers Care Regional Project Manager Name Role Phone Kamilah Trivedi MD Primary [...] age to complete this topic Insurance CLAIMS Member Subscriber Plan / Payer (Ef fective 2024-Present) Name:DruAncelmoRegla Relation to Subscriber:Spouse Name:MAHAMEDANTHONY IBARRA Date of :1980 (Home) Address: [address] [place] [address] Payer ID:[id number] (NAIC) Group ID:Not on file Type:Vitals ([email or web address]) Address: [facility] [place] [address] Care Teams Regional Project Manager Relationship Specialty Start Date End Date Kamilah Trivedi MD PCP - General Family Practice 03/31/22
--- OUTSIDE RECORDS SUMMARY | 2025-02-02 02:08 | XMS_ITS | Continuity of Care Document ---
Author Organization [facility] Address [address] [place] [address] [address] [place] [address] Phone Care Team Providers Care Hydraulic Elevator Constructor Name Role Phone Honey Valentin Unavailable Unavailable Advance Directives Directive Yes / No Effective Date File Name No Information Encounters Encounter Description Practice Location Reason(s) For Visit Diagnoses Date Provider Providers Copied on Encounter [facility], [id number] [place] [address] [address], [place], [place], [id number], [place] tel:[phone] SEC [facility] No Information 5[address] Barbie Méndez. [address] [facility] , [address], [place], [address], [place]. tel:[phone] Family History Family Member Type Diagnosis Age At Onset No Information Payers Payer name Insurance type Covered democrat ID Authoriza mann(s) [facility] CI [id number] Social History Type Description Quantity Date Captured [...]
--- OUTSIDE RECORDS SUMMARY | 2025-02-02 02:08 | XMS_ITS | Continuity of Care Document ---
Author Name [facility] Organization [facility] Care Team Providers Care Steam Table Worker Name Role Phone [facility] Unavailable Unavailable Social History Combined list of available smoking, tobacco, and other social history from Department of Defense and Veterans Affairs facilities. Social History Type Response Date Comment Sourc e This section is an empty social history section. DoD
--- OUTSIDE RECORDS SUMMARY | 2025-02-02 02:09 | XMS_ITS | Clinical Summary ---
Author Organization [facility] Address [address] [place] [address] Care Team Providers Care Industrial Green Systems Designer Name Role Phone Kenia Doe MD Primary Care Provider + Source Comments [facility],non-owned Affiliates and Associated Physician Practices is amultiple site organization consisting of ambulatory clinics and hospital sitesin [place], [place], [place] and [place]. This disclosure is being madepursuant to the Care Everywhere program and may not contain all information available regarding this patient. Last updated 18.[facility] Allergies No known active allergies Medications * [...] of Phone Billing Address Personal/Family 1980 [place] [address] Hospital/[facility] Address: [facility] CLAIMS [address] [place] [address] Care Teams Industrial Green Systems Designer Relationship Specialty Start Date End Date Kenia Doe MD [address] [place], [place] [address] PCP - General Family Medicine 12/30/20
[2025-02-02 02:13] LABS: Hematocrit 29.8 % (37.0-47.0); Hemoglobin 8.8 g/dL (12.0-15.0); Immature Granulocyte Percent A 0.3 % (0-0.5); Lymphocytes Absolute Auto 2.74 K/mm3 (0.9-3.2); Mean Corpuscular HGB Conc 29.5 g/dl (32-36); Mean Corpuscular Hemoglobin 21.7 pg (26-34); Mean Corpuscular Volume 73.6 fl (80-100); Nucleated Red Blood Cells Absolute Auto 0.000 K/mm3 (0.0-0.012); Nucleated Red Blood Cells Perc 0.0 % (0.0-0.2); Platelet Count Result 461 k/mm3 (150-375); Red Blood Count 4.05 M/mm3 (4.2-5.4); White Blood Count 11.9 K/mm3 (4.5-10.0)
[2025-02-02 02:18] LABS: SPREG INTERNAL CONTROL Positive; Serum Qual hCG Negative
[2025-02-02 02:30] VITALS: BP 105/72; PULSE 93; RESP 19
[2025-02-02 02:33] LABS: Hypochromasia 1+
[2025-02-02 02:34] LABS: Band Neutrophils Percent 0 % (0-6); Ovalocytes 1+; Schistocytes None Seen
[2025-02-02 02:35] LABS: Alanine Aminotransferase 21 U/L (6-35); Albumin Level 3.8 g/dL (3.5-5.1); Alkaline Phosphatase 71 U/L (38-126); Anion Gap 9 mmol/L (4-12); Aspartate Amino Transferase 26 U/L (14-36); Bilirubin,Total 0.1 mg/dL (0.2-1.3); Blood Urea Nitrogen 17 mg/dL (7-17); Calcium 8.7 mg/dL (8.4-10.2); Carbon Dioxide 21 mmol/L (22-30); Chloride 106 mmol/L (98-107); Estimated CRCL calculation 69 ml/min; Estimated Glomerular Filt Rate > 60; Glucose 93 mg/dL (65-110); Lipase 122 U/L (23-300); Magnesium 1.8 mg/dL (1.6-2.3); Potassium 3.7 mmol/L (3.4-5.0); Sodium 136 mmol/L (137-145); Total Protein 7.3 g/dL (6.3-8.2)
--- NOTE | 2025-02-02 03:14 | ED.GENADULT ---
HPI - General Adult General Chief complaint: GI Bleed Stated complaint: low platelets, rectal bleeding, lightheadedness Time Seen by Provider: 02/02/25 01:37 History of Present Illness HPI narrative: Patient a 44-year-old female who presents the emergency department this evening complaining of rectal bleeding. States that she recently had blood work done was told that 1 of her lab values likely her hemoglobin was low at a value of 9. She was started on iron pills which the patient states that she has been taking. She states that her stools have recently been dark, otherwise states that she has been feeling slightly lightheaded and generally weak. Denies any additional symptoms or concerns at this time. Related Data Home Medications ?Medication ?Instructions ?Recorded ?Confirmed ?Last Taken ?Type loratadine 10 mg tablet (Claritin) 10 mg PO DAILY 06/11/21 02/03/22 Unknown History dextroamphetamine-amphetamine 10 10 mg PO BID 11/14/21 02/03/22 Unknown History mg tablet (Adderall) Allergies Allergy/AdvReac Type Severity Reaction Status Date / Time No Known Allergies Allergy Verified 02/01/25 23:40 Review of Systems Review of Systems: All systems are reviewed and are negative unless stated otherwise in the HPI. [facility] Past Medical History Medical History Cough Major depressive disorder, recurrent, moderate Seasonal allergies MICKIE (generalized anxiety disorder) Adult hypothyroidism Family History Family History Father Hypertension Mixed hyperlipidemia Myasthenia gravis Glaucoma Mother Hydrocephalus Sibling Asthma Glaucoma Social History Social History Social History: Smoking status: Former smoker Tobacco type: cigarettes Second hand tobacco smoke exposure: No Smoking end date: 07/26/85 Alcohol intake: never Substance use: never Substance use type: does not use Living arrangements: with family Occupation/Education: unemployed Gender identity (if verbalized by the patient): Female Sexual Orientation (if Verbalized by the Patient): Straight or Heterosexual Exam Narrative: General: Alert, awake, afebrile, in no acute distress. HEENT: PERRL, no rhinorrhea, no post nasal drip, oropharynx clear. Neck: Trachea midline, no JVD, no lymphadenopathy. Cardiovascular: Regular rate and rhythm, no murmurs, rubs or gallops, no peripheral edema. Respiratory: Clear to auscultation bilaterally, no tachypnea, no wheezing, no rhonchi, no rubs, no respiratory distress. Abdomen: Soft, nontender, nondistended, no rebound, no guarding, no peritoneal signs. Rectal: Exam performed with presence of female nurse compliance monitor revealing good rectal tone, no evidence of external hemorrhoids fissures. No stool or blood noted in the digital rectal examination. Musculoskeletal: No joint swelling or deformity, normal muscle tone. Skin: No rashes or petechia, no signs of infection. Psychiatric: Alert and oriented, normal behavior and judgment for situation. Neurological: Alert and oriented to person, place, and time. Follows all commands. No focal deficits, speech is clear and fluent. Course Vital Signs Vital signs: Vital Signs Temperature 97.8 F 02/01/25 23:48 Pulse Rate 100 02/01/25 23:48 Respiratory Rate 18 02/01/25 23:48 Blood Pressure 138/96 H 02/01/25 23:48 Pulse Oximetry 100 02/01/25 23:48 Oxygen Delivery Room Air 02/01/25 23:48 Temperature 98.5 F 02/02/25 01:30 Pulse Rate 93 02/02/25 02:30 Respiratory Rate 19 02/02/25 02:30 Blood Pressure 105/72 02/02/25 02:30 Pulse Oximetry 99 02/02/25 01:33 Oxygen Delivery Room Air 02/02/25 01:30 Medical Decision Making MDM Narrative Medical decision making narrative: The patient was evaluated by myself in the emergency department. History is obtained from patient who is an independent historian and physical exam was performed. External medical records were reviewed at this time. IV was established and pertinent tests were ordered. Laboratory results obtained revealing a hemoglobin of 8.8 which is not far off from patient's hemoglobin of 9.3 from February of 2023. Differential diagnosis considerations include anal fissures, hemorrhoids, colon polyps, upper versus lower GI bleed. Comorbidities impacting this visit include history of anemia. I have evaluated and discussed social determinants of health with the patient that could potentially impact subsequent diagnosis and treatment plans. On repeat assessment of the patient, reevaluation revealed that the patient is doing well and is in no acute distress. Patient symptoms have improved since she arrived to our emergency department. Repeat vital signs were all reviewed and noted to be stable. Differential diagnosis and treatment plan were discussed with the patient at bedside. Patient agrees with discussion and after shared medical decision making agrees with discharge. All questions were answered to the patient's satisfaction. Patient will follow up with GI in 3-5 days. Patient was provided with strict return precautions and instructed to return to the emergency department if any new or worsening symptoms develop. The patient was discharged in stable condition. Vital Signs Vital Signs: Vital Signs Temperature 97.8 F 02/01/25 23:48 Pulse Rate 100 02/01/25 23:48 Respiratory Rate 18 02/01/25 23:48 Blood Pressure 138/96 H 02/01/25 23:48 Pulse Oximetry 100 02/01/25 23:48 Oxygen Delivery Room Air 02/01/25 23:48 Temperature 98.5 F 02/02/25 01:30 Pulse Rate 93 02/02/25 02:30 Respiratory Rate 19 02/02/25 02:30 Blood Pressure 105/72 02/02/25 02:30 Pulse Oximetry 99 02/02/25 01:33 Oxygen Delivery Room Air 02/02/25 01:30 Lab Data 02/02/25 02:03 02/02/25 02:03 Labs: Lab Results 02/02/25 Range/Units 02:03 WBC 11.9 H (4.5-10.0) K/mm3 RBC 4.05 L (4.2-5.4) M/mm3 Hgb 8.8 L (12.0-15.0) g/dL Hct 29.8 L (37.0-47.0) % MCV 73.6 L (80-100) fl MCH 21.7 L (26-34) pg MCHC 29.5 L (32-36) g/dl RDW 18.6 H (11.5-14.5) % Plt Count 461 H (150-375) k/mm3 MPV 11.0 H (7.4-10.4) fl Immature Gran % (Auto) 0.3 (0-0.5) % Neut % (Auto) 68.8 (45.5-73.1) % Lymph % (Auto) 22.9 (18.3-44.2) % [place] % (Auto) 4.8 (2.6-8.5) % Eos % (Auto) 2.3 (0-4.4) % Baso % (Auto) 0.9 (0.2-1.2) % Lymph # (Auto) 2.74 (0.9-3.2) K/mm3 [place] # (Auto) 0.6 (0.1-0.6) K/mm3 Eos # (Auto) 0.3 (0-0.3) K/mm3 Baso # (Auto) 0.1 (0.0-0.1) K/mm3 Abs Immat Gran (auto) 0.04 H (0.00-0.031) K/mm3 Absolute Neuts (auto) 8.2 H (1.3-6.7) K/mm3 Absolute Nucleated RBC 0.000 (0.0-0.012) K/mm3 Band Neutrophils % 0 (0-6) % Nucleated RBC % 0.0 (0.0-0.2) % Platelet Estimate Slightly increased (Adequate) Hypochromasia 1+ Ovalocytes 1+ Schistocytes None seen Sodium 136 L (137-145) mmol/L Potassium 3.7 (3.4-5.0) mmol/L Chloride 106 (98-107) mmol/L Carbon Dioxide 21 L (22-30) mmol/L Anion Gap 9 (4-12) mmol/L BUN 17 (7-17) mg/dL Creatinine 0.69 L (0.7-1.0) mg/dL Estim Creat Clear Calc 69 ml/min Estimated GFR > 60 (59 - ) Glucose 93 (65-110) mg/dL Calcium 8.7 (8.4-10.2) mg/dL Magnesium 1.8 (1.6-2.3) mg/dL Total Bilirubin 0.1 L (0.2-1.3) mg/dL AST 26 (14-36) U/L ALT 21 (6-35) U/L Alkaline Phosphatase 71 (38-126) U/L Total Protein 7.3 (6.3-8.2) g/dL Albumin 3.8 (3.5-5.1) g/dL Lipase 122 (23-300) U/L Serum HCG, Qual Negative Discharge Plan Discharge Clinical Impression: Bright red rectal bleeding Patient Disposition: Home Condition: Stable Instructions: Antibiotic Form, Rectal Bleeding (ED) Additional Instructions: Please follow-up with the step down specialist that you were referred to as scheduled for your upcoming appointment. Return to the ED if any new or worsening symptoms develop. Make sure that you are taking your iron pills at your doctor prescribed as you are anemic. Patient Language: Estonian Prescriptions: No Action clindamycin phosphate 1 % solution 1 applic topical BID Qty: 60 1RF loratadine [Claritin] 10 mg tablet 10 mg PO DAILY dextroamphetamine-amphetamine [Adderall] 10 mg tablet 10 mg PO BID Rx Instructions: administer doses at least 4-6 hours apart pantoprazole [Protonix] 40 mg tablet,delayed release (DR/EC) 40 mg PO HS 28 Days Qty: 28 0RF benzonatate 200 mg capsule 200 mg PO TID PRN (Reason: cough) Qty: 30 0RF promethazine-codeine 6.25-10 mg/5 mL syrup 5 ml PO Q6H PRN (Reason: cough) Qty: 118 0RF tretinoin 0.1 % cream 1 applic topical QHS Qty: 45 2RF pantoprazole 40 mg tablet,delayed release (DR/EC) See Rx Instructions .ROUTE .COMPLEX Qty: 30 0RF Dose Instruction: TAKE 1 TABLET BY MOUTH EVERY MORNING Rx Instructions: TAKE 1 TABLET BY MOUTH EVERY MORNING polysaccharide iron complex 150 mg iron capsule See Rx Instructions .ROUTE .COMPLEX Qty: 30 0RF Dose Instruction: TAKE 1 CAPSULE BY MOUTH EVERY DAY Rx Instructions: TAKE 1 CAPSULE BY MOUTH EVERY DAY levothyroxine 50 mcg tablet See Rx Instructions .ROUTE .COMPLEX Qty: 64 1RF Dose Instruction: TAKE 1 TABLET BY MOUTH WEDNESDAY THROUGH WEDNESDAY. Rx Instructions: TAKE 1 TABLET BY MOUTH WEDNESDAY THROUGH WEDNESDAY. Follow-up/Referrals: Faizan,Zuleyka Kuo NP [Primary Care Provider] - 3 Days Time of Disposition: 03:14
[2025-02-02 03:22] VITALS: BP 98/68; PULSE 90; RESP 18; TEMP 36.8; O2SAT 99
== END 2025-02-02 03:23 | disposition home or self-care (01) ==
PROVIDERS: Emergency Provider Emergency Medicine; PCP Nurse Practitioner Family
DX: K62.5 Hemorrhage of anus and rectum (principal); E03.9 Hypothyroidism, unspecified; F33.9 Major depressive disorder, recurrent, unspecified; F41.1 Generalized anxiety disorder; Z79.899 Other long term (current) drug therapy
CPT/HCPCS: 36415; 80053; 83690; 83735; 84703; 85025; 99283